=== PATIENT | male | born 1960 | race Caucasian/White ===

== ENCOUNTER 2019-09-17 08:29 | Emergency (ER) | payer OTHER, MEDICAID, SELFPAY ==
[2019-09-17 08:45] VITALS: BP 153/98; PULSE 62; RESP 15; TEMP 36.4; O2SAT 96; BMI 25.8
--- NOTE | 2019-09-17 09:18 | ED_ITS ---
HPI - Back Pain/Injury General Chief Complaint: Back Pain/Injury Stated Complaint: lower back pain hard to sit Time Seen by Provider: 09/17/19 08:43 Source: patient Mode of arrival: Ambulatory Limitations: no limitations History of Present Illness HPI Narrative: Patient comes emergency department complaining of left low back and flank pain started yesterday afternoon. Patient states he is visiting from out of town and has had to share a bed with a 2-year-old, and thought that perhaps he had just ?slept wrong?. However, the symptoms seem to be getting worse, the patient was concerned when he began to vomit this morning. Patient states there is no position which he can't seem to get comfortable. He has no history of kidney stones as far as he knows. He does not have chronic back pain. No recent injuries. Patient states that he is otherwise healthy. He states that he has been able to control his bowels and bladder. No numbness or tingling in his lower extremities. He states he does have a sense of needing to urinate but then when he tries to urinate, and nothing comes out. He denies any dysuria when he has urinated. No blood in his urine. No other complaints at this time. Related Data Home Medications Medication Instructions Recorded Confirmed atorvastatin 40 mg PO DAILY 09/17/19 09/17/19 lisinopril 10 mg PO DAILY 09/17/19 09/17/19 metoprolol succinate 25 mg PO DAILY 09/17/19 09/17/19 Previous Rx's Medication Instructions Recorded hydrocodone-acetaminophen 1 tab PO Q4H PRN #10 tab 09/17/19 ondansetron 4 mg PO Q6H PRN #10 tab 09/17/19 Allergies Allergy/AdvReac Type Severity Reaction Status Date / Time No Known Drug Allergies Allergy Verified 09/17/19 08:45 Review of Systems Review of Systems ROS Unobtainable: All systems reviewed & are unremarkable except as noted in HPI and below Constitutional Constitutional: Denies chills, Denies fatigue, Denies fever(s), Denies frequent falls, Denies lethargy and Denies weakness Eyes Eyes: Denies change in vision, Denies eye discharge, Denies irritation and Denies loss of vision ENT Ears, Nose, Mouth, and Throat: Denies change in voice, Denies dizziness, Denies neck pain, Denies sore throat and Denies throat swelling Cardiovascular Cardiovascular: Denies chest pain, Denies irregular heart rhythm, Denies lightheadedness, Denies palpitations, Denies dyspnea, Denies dyspnea on exertion and Denies orthopnea Respiratory Respiratory: Denies cough, Denies dyspnea, Denies dyspnea on exertion and Denies wheezing Gastrointestinal Gastrointestinal: Denies abdominal pain, Denies change in bowel habits, Denies diarrhea, Reports nausea and Reports vomiting Genitourinary Genitourinary: Denies hematuria, Denies flank pain, Denies urinary incontinence and Denies urinary urgency Musculoskeletal Musculoskeletal: Reports back pain, Denies muscle weakness, Denies neck pain, Denies numbness and Denies tingling Integumentary/Breasts Skin/Breast: Denies pruritus, Denies erythema, Denies rash and Denies wounds Neurologic Neurologic: Denies behavioral changes, Denies confusion, Denies dizziness, Denies frequent falls, Denies loss of vision, Denies numbness, Denies tingling and Denies weakness Psychiatric Psychiatric: Denies anxiety, Denies behavioral changes, Denies confusion, Denies depression, Denies homicidal ideation and Denies suicidal ideation Endocrine Endocrine: Denies fatigue, Denies flushing and Denies palpitations Hematologic/Lymphatic Hematologic/Lymphatic: Denies easy bruising Allergic/Immunologic Allergic/Immunologic: Denies urticaria, Denies throat swelling and Denies wheezing Patient History Medical History Healthy adult (Acute) Social History Smoking Status: Never smoker Smoking Status: Never smoker alcohol intake frequency: a few times a week Substance Use Type: does not use Exam Initial Vital Signs Initial Vital Signs: Vital Signs Temperature 97.5 F L 09/17/19 08:45 Pulse Rate 62 09/17/19 08:45 Respiratory Rate 15 09/17/19 08:45 Blood Pressure 153/98 H 09/17/19 08:45 Pulse Oximetry 96 09/17/19 08:45 Const General: cooperative and well developed Nutritional Appearance: well nourished Other: Patient is tearful, pacing, clearly uncomfortable. HENMT Head: normocephalic and atraumatic Ears: external ears normal Nose: external nose normal and No nasal discharge Face and sinus: face symmetric and No dry mucous membranes Mouth: oral mucosae normal and moist mucous membranes Teeth and gingiva: dentition normal Eyes General: appearance normal, both eyes and all related structures Eyelids: eyelids normal Conjunctivae: conjunctivae normal Sclera: sclerae normal Pupils: PERRL EOM: EOM intact bilaterally Neck Neck: normal visual inspection, trachea midline, No lymphadenopathy, No midline deformity and No JVD Lymphatic: No lymphedema Chest Chest: normal inspection of the chest Resp Effort & Inspection: normal respiratory effort, able to speak in complete sentences, no respiratory distress and no use of accessory muscles Auscultation: clear to auscultation bilaterally, no rales, no rhonchi and no wheezes Cardio Rate: regular rate Rhythm: regular rhythm Heart Sounds: no click, no gallops, no murmurs and no rubs Pulses: normal peripheral pulses GI Inspection: non-distended Palpation: soft, no hepatosplenomegaly, No guarding, No pulsatile mass and No tender Auscultation: normal bowel sounds Back/Spine/Pelvis Back: CVA tenderness left Cervical Spine: cervical ROM normal and No pain with cervical ROM Thoracic/Lumbar Spine: thoracic and lumbar spine normal to inspection Skin General: no rashes or lesions noted, No jaundice and No petechiae Neuro General: alert, oriented x3, gait normal and no focal motor deficits Speech: speech normal Extrem General: full ROM, no clubbing, cyanosis or edema, no pedal edema and no calf tenderness Psych Appearance: well kempt Mental Status: mental status grossly normal Attitude: cooperative Thought Content: normal and suicidality Judgment: judgment good Course Course Course Narrative: The patient was worked up with urinalysis and CT KUB, which did show a left ureteral stone. He was treated symptomatically with IV fluids, Zofran, Toradol, and Dilaudid. He was found to have a kidney stone that was just passing into the bladder at the time of CT scan. This is on the left side, consistent with the patient's pain. I did re-evaluate the patient, who is found to be feeling much better. We discussed home management of symptoms, as well as the usual indications for return. I've given him the number for [facility]. Orders Ordered: Discontinued Medications Hydromorphone HCl (Dilaudid) 0.5 mg IV NOW ONE Stop: 09/17/19 09:18 Last Admin: 09/17/19 09:27 Dose: 0.5 mg Documented by: JACKI Sodium Chloride (Normal Saline 0.9%) 1,000 mls @ 1,000 mls/hr IV BOLUS ONE Stop: 09/17/19 10:16 Last Infusion: 09/17/19 10:26 Dose: 0 mls/hr Documented by: FREDAARRINGMANDO Admin: 09/17/19 09:26 Dose: 1,000 mls/hr Documented by: JACKI Ketorolac Tromethamine (Toradol) 30 mg IV NOW ONE Stop: 09/17/19 09:18 Last Admin: 09/17/19 09:27 Dose: 30 mg Documented by: JACKI Ondansetron HCl (Zofran) 4 mg IV NOW ONE Stop: 09/17/19 09:18 Last Admin: 09/17/19 09:27 Dose: 4 mg Documented by: JACKI Vital Signs Vital signs: Vital Signs - 8 hr 09/17/19 08:45 Temperature 97.5 F L Pulse Rate 62 Respiratory Rate 15 Blood Pressure 153/98 H Pulse Oximetry 96 MDM - Back Pain/Injury Medical Records Attestation: I reviewed the patient's medical records. Lab Data Attestation: I reviewed the patient's lab results. Labs: Lab Results 09/17/19 Range/Units 08:44 Urine RBC 1-5/hpf (0-5/HPF) Urine WBC 1-5/hpf (0-5/HPF) Urine Bacteria Few (2-10) H (None) Ur Culture Indicated? Cult not indicated Urine Dip Bedside Urine Glucose Negative Bedside Urine Bilirubin - Negative Bedside Urine Ketone - Negative Urine Specific [place] 1.020 Bedside Urine Occult Blood + Bedside Urine pH 6.5 Bedside Urine Protein +/- 15 Bedside Urine Urobilinogen - Negative Bedside Urine Nitrite - Negative Bedside Urine Leukocytes - Negative Esterase Imaging Data CT scan - abdomen/pelvis: Radiologist's Impression: PROCEDURE: CT KIDNEY URETER BLADDER (KUB) INDICATIONS: Left flank pain x 5 hours TECHNIQUE: Noncontrast 5 mm thick sections acquired from the diaphragms to the symphysis. 5 mm thick coronal and sagittal reformats were then performed. For radiation dose reduction, the following was used: automated exposure control, adjustment of mA and/or kV according to patient size. COMPARISON: None. FINDINGS: Image quality: Excellent. Lung bases: Lung bases are clear. Heart size is normal. Urinary system: Both kidneys are normal in size. The moderate left-sided hydronephrosis and perinephric fat stranding is seen. There is also dilatation of left ureter extending to the level of left UVJ. A 3 mm stone is seen in dependent portion of urinary bladder just distal to left UVJ suggestive of a passed left renal stone. No right-sided hydronephrosis. 1-2 mm nonobstructing bilateral renal calculi are seen. No ri ght-sided perinephric fat stranding. Right ureter is within normal limits. Both ureters appear non-dilated throughout their expected courses. Bladder wall thickness is normal. Other solid organs: Liver is normal in size. Gallbladder is within normal limits. Pancreas is normal in contours. Spleen is normal in size. No adrenal nodules. Peritoneum and bowel: There is a small hiatal hernia. Unenhanced bowel loops demonstrate normal wall thickness and caliber. No free fluid or air. Nodes and vessels: No retroperitoneal or mesenteric adenopathy by size criteria. Aorta and inferior vena cava are normal in caliber. Abdominal wall: No ventral hernias. Pelvis: No free pelvic fluid. No inguinal hernias or adenopathy. Bones: No suspicious bony lesions. No vertebral body compression fractures. Degenerative disc disease at L3-4 level and L4-5 level are seen. IMPRESSION: 1. Finding is consistent with a passed 3 mm left-sided renal stone with moderate left-sided hydronephrosis and hydroureter and left perinephric fat stranding. 2. Bilateral tiny nonobstructing renal calculi. No right-sided hydronephrosis. Normal appearing right ureter and urinary bladder. 3. No abnormal bowel wall thickening. No obstruction. Small hiatal hernia. No free fluid or free air. Dictated by: Sim Ghosh M.D. on 09/17/2019 at 9:31 Approved by: Sim Ghosh M.D. on 09/17/2019 at 9:46 Discharge Plan Departure Patient Disposition: Home Clinical Impression: Kidney stone on left side Discharge Date/Time: 09/17/19 11:06 Instructions: DI for Kidney Stones Activity Restrictions/Additional Instructions: Your CT scan showed a kidney stone on the left, which was just passing into your bladder. This should come out with urination very soon. Most of the pain is caused by the stone passing through the ureter, the small to between the kidneys and bladder. As the stone has already passed through the ureter, your pain should improve significantly in the next hour or 2. You may take the pain and nausea medication, as needed. Please follow-up with the urologist if your symptoms do not resolve in the next week. Prescriptions: New ondansetron 4 mg tablet,disintegrating 4 mg PO Q6H PRN (Reason: nausea and vomiting) Qty: 10 RF: 0 hydrocodone-acetaminophen 5-325 mg tablet 1 tab PO Q4H PRN (Reason: pain) Qty: 10 RF: 0 No Action atorvastatin 40 mg tablet 40 mg PO DAILY RF: 0 lisinopril 10 mg tablet 10 mg PO DAILY RF: 0 metoprolol succinate 25 mg tablet extended release 24 hr 25 mg PO DAILY RF: 0 Referrals: [facility] [Provider Group]
--- NOTE | 2019-09-17 09:21 | DI.CT.S_ITS ---
PROCEDURE: CT KIDNEY URETER BLADDER (KUB) INDICATIONS: Left flank pain x 5 hours TECHNIQUE: Noncontrast 5 mm thick sections acquired from the diaphragms to the symphysis. 5 mm thick coronal and sagittal reformats were then performed. For radiation dose reduction, the following was used: automated exposure control, adjustment of mA and/or kV according to patient size. COMPARISON: None. FINDINGS: Image quality: Excellent. Lung bases: Lung bases are clear. Heart size is normal. Urinary system: Both kidneys are normal in size. The moderate left-sided hydronephrosis and perinephric fat stranding is seen. There is also dilatation of left ureter extending to the level of left UVJ. A 3 mm stone is seen in dependent portion of urinary bladder just distal to left UVJ suggestive of a passed left renal stone. No right-sided hydronephrosis. 1-2 mm nonobstructing bilateral renal calculi are seen. No right-sided perinephric fat stranding. Right ureter is within normal limits. Both ureters appear non-dilated throughout their expected courses. Bladder wall thickness is normal. Other solid organs: Liver is normal in size. Gallbladder is within normal limits. Pancreas is normal in contours. Spleen is normal in size. No adrenal nodules. Peritoneum and bowel: There is a small hiatal hernia. Unenhanced bowel loops demonstrate normal wall thickness and caliber. No free fluid or air. Nodes and vessels: No retroperitoneal or mesenteric adenopathy by size criteria. Aorta and inferior vena cava are normal in caliber. Abdominal wall: No ventral hernias. Pelvis: No free pelvic fluid. No inguinal hernias or adenopathy. Bones: No suspicious bony lesions. No vertebral body compression fractures. Degenerative disc disease at L3-4 level and L4-5 level are seen. IMPRESSION: 1. Finding is consistent with a passed 3 mm left-sided renal stone with moderate left-sided hydronephrosis and hydroureter and left perinephric fat stranding. 2. Bilateral tiny nonobstructing renal calculi. No right-sided hydronephrosis. Normal appearing right ureter and urinary bladder. 3. No abnormal bowel wall thickening. No obstruction. Small hiatal hernia. No free fluid or free air. Dictated by: Sim Ghosh M.D. on 09/17/2019 at 9:31 Approved by: Sim Ghosh M.D. on 09/17/2019 at 9:46
[2019-09-17] MEDS: SODIUM CHLORIDE 0.9% 1,000 ML 1000 ML IV (09:26)
[2019-09-17] MEDS: KETOROLAC 60 MG/2 ML VIAL 30 MG IV (09:27)
[2019-09-17] MEDS: ONDANSETRON 4 MG/2 ML INJ IV (09:27)
[2019-09-17] MEDS: HYDROMORPHONE 0.5 MG INJ IV (09:27)
[2019-09-17 09:39] LABS: Bacteria Urine Few (2-10); Culture Indicated Urine Cult Not Indicated; RBC Urine 1-5/HPF (0-5/HPF); WBC Urine 1-5/HPF (0-5/HPF)
[2019-09-17 09:58] VITALS: BP 145/64; PULSE 76; RESP 16; O2SAT 91
[2019-09-17 10:55] VITALS: BP 120/75; PULSE 79; RESP 21; O2SAT 100
== END 2019-09-17 11:06 | disposition home or self-care (01) ==
PROVIDERS: Emergency Provider Emergency Medicine
DX: N20.0 Calculus of kidney (principal)
CPT/HCPCS: 36415; 74176; 81003; 81015; 96361; 96374; 96375; 99284; J1170; J1885; J2405